=== PATIENT | male | born 1955 | race Caucasian/White ===

== ENCOUNTER 2024-09-21 18:21 | Emergency (ER) | payer OTHER ==
[2024-09-21] VITALS (7 sets, daily range): BP systolic 153–183; BP diastolic 89–120
[~2024-09-21] VITALS: Ht 188 cm; Wt 85.7 kg
[~2024-09-21 18:21] MED LIST: NO HOME MEDS
[2024-09-21] MEDS ORDERED: VOLTAREN - GENE75 MG PO (19:40)
[2024-09-21] MEDS ORDERED: DICLOFENAC SODIUM 75 MG/TAB PO ONE (19:45)
[2024-09-21] MEDS ORDERED: ACETAMINOPHEN 500 MG TAB PO ONE (19:45)
== END 2024-09-21 19:49 | disposition home or self-care (01) | DRG 605 ==
LOC: ED 18:21
DX: S70.02XA Contusion of left hip, initial encounter (principal); Y04.0XXA Assault by unarmed brawl or fight, initial encounter